=== PATIENT | female | born 1965 ===

== ENCOUNTER 2017-01-03 14:37 | Emergency (ER) | payer BC ==
--- NOTE | 2017-01-03 16:49 | UC ---
Complaint Female HPI - HPI Summary HPI Summary: 51 y/o female presents to the urgent care c/o lower abdominal pain for the past 2 days. Her pain is 6/10 associated with a mild ARAGON and body aches. Pt denies fever, N/V/D. SOB, chest pain, urinary symptoms, vaginal discharge or Hx of STDs. Pt states her last PAP was about 3 moths ago and it was normal. - History Of Current Complaint Chief Complaint: UCAbdominalPain Stated Complaint: STOMACH,ARAGON Time Seen by Provider: 01/03/17 16:34 Hx Obtained From: Patient Hx Last Menstrual Period: Pt is postmenopausal ?: No Onset/Duration: Gradual Onset, Lasting Days, Still Present Timing: Constant Severity Initially: Mild Severity Currently: Moderate Pain Intensity: 6 Pain Scale Used: 0-10 Numeric Character: Cramping Aggravating Factor(s): Movement Alleviating Factor(s): Nothing Associated Signs And Symptoms: Negative: Fever, Back Pain, Vaginal Bleeding/ Discharge, Vaginal Discharge, Nausea, Vomiting(# Of Episodes =) - Risk Factors Ectopic Risk Factor: Negative Ovarian Torsion Risk Factor: Negative - Allergies/Home Medications Allergies/Adverse Reactions: Allergies Allergy/AdvReac Type Severity Reaction Status Date / Time No Known Allergies Allergy Verified 01/03/17 14:56 PMH/Surg Hx/FS Hx/Imm Hx Previously Healthy: Yes - Surgical History Surgical History: Yes Surgery Procedure, Year, and Place: . BILATERAL SHOULDER SURGERY. [facility] - Family History Known Family History: Positive: None - Social History Occupation: Unemployed Lives: With Family Alcohol Use: Weekly Alcohol Amount: WINE WITH DINNER Substance Use Type: None Smoking Status (MU): Never Smoked Tobacco Review of Systems Constitutional: Other - body aches Skin: Negative Eyes: Negative ENT: Negative Respiratory: Negative Cardiovascular: Negative Gastrointestinal: Abdominal Pain - Pelvic pain Genitourinary: Negative Motor: Negative Neurovascular: Negative Musculoskeletal: Negative Neurological: Headache - mild Psychological: Negative All Other Systems Reviewed And Are Negative: Yes Physical Exam Triage Information Reviewed: Yes Appearance: Well-Appearing, No Pain Distress, Well-Nourished, Obese Vital Signs: Initial Vital Signs Temp 97.8 F 01/03/17 14:57 Pulse 102 01/03/17 14:57 Resp 17 01/03/17 14:57 BP 122/72 01/03/17 14:57 Pulse Ox 98 01/03/17 14:57 Vital Signs Reviewed: Yes Eye Exam: Normal Eyes: Positive: Conjunctiva Clear - PERRLA, EOMI, fundi grossly intact ENT Exam: Normal ENT: Positive: Normal ENT inspection, Hearing grossly normal, Pharynx normal, TMs normal Dental Exam: Normal Neck exam: Normal Neck: Positive: Supple, Nontender, No Lymphadenopathy Respiratory Exam: Normal Respiratory: Positive: Chest non-tender, Lungs clear, Normal breath sounds Cardiovascular Exam: Normal Cardiovascular: Positive: RRR, No Murmur, Pulses Normal Abdominal Exam: Normal Abdomen Description: Positive: Nontender - tenderness on deep palpation over the suprapubic area, No Organomegaly, Soft, Other: - Pelvic: I was assisted by Nurse Sherrie. External genitalia within normal limits. There is no lesions there is no masses noted. Speculum exam: The vaginal porras are within normal limits w / white vaginal discharge and a fishy odor, no the lesions or rashes. The cervix is closed with no lesions or masses. There is no CMT's, and no adnexal masses. Sample sentLab for affirm panel.. Negative: CVA Tenderness (R), CVA Tenderness (L) Bowel Sounds: Positive: Present Musculoskeletal Exam: Normal Musculoskeletal: Positive: Strength Intact, ROM Intact, No Edema Neurological Exam: Normal Psychological Exam: Normal Skin Exam: Normal Complaint Female Dx - Course Course Of Treatment: 51 y/o female presents to the urgent care c/o lower abdominal pain for the past 2 days. Hx obtained. PE abnormal findings: Abdomen soft w/o any guarding. Positive bowel sounds,positive tenderness on deep palpation over the suprapubic area. Pelvic: I was assisted by Nurse Sherrie. External genitalia within normal limits. There is no lesions there is no masses noted. Speculum exam: The vaginal porras are within normal limits w/ white vaginal discharge and a fishy odor, no lesions or rashes. The cervix is closed with no lesions or masses. There is no CMT's, and no adnexal masses. Sample sentLab for affirm panel. Most likely Bacterial Vaginosis. UA ordered, result: negative except 1+ of blood. Unable to perform a transvaginal ultrasound at this moment. Pt Rx Metronidazole vaginal applicator to Tx emperically BV. Pt Rx ibuprofen to alleviate pelvic pain. However strongly advised to go to the ER if pain persisted despite the Ibuprofen for furhter evaluation and treatment. Pt understood and agreed. PAP was negative and performed in 10/[address] Nima Crawley. Pt advised to f/u up with her if not improvement. Pt understood and agreed - Differential Dx/Diagnosis Differential Diagnosis/HQI/PQRI: Appendicitis, Cervicitis, Ovarian Cyst, Pelvic Inflammatory Disease, Urinary Tract Infection, Other - vaginosos Provider Diagnoses: Bacterial vaginosis, Pelvic pain - Physician Notifications Discussed Patient Care With: José Manuel Forrester - Dr Forrester agreed on pt care and treatment. Discharge - Discharge Plan Condition: Stable Disposition: HOME Prescriptions: Ibuprofen TAB* [Motrin TAB* 800 MG] 800 mg PO Q6H #30 tab metroNIDAZOLE VAGINAL 0.75%* 1 applic VAGINAL BEDTIME #5 tube Patient Education Materials: Bacterial Vaginosis (ED), Pelvic Pain in Women (ED ) Referrals: Misbah VILLARREAL,Nima Santiago [Medical Doctor] - If Needed Non Staff,Doctor [Primary Care Provider] - Additional Instructions: Please take medications as directed to alleviate symptoms. If pelvic pain persist despite taking the ibuprofen please go to the ER immediately for furhter evaluation and treatment.
[2017-01-03 17:12] VITALS: BP 115/76
== END 2017-01-03 17:22 | disposition home or self-care (01) ==
LOC: UCCORT 14:37
DX: N76.0 Acute vaginitis (principal); R10.2 Pelvic and perineal pain
CPT/HCPCS: 81003; 87480; 87510; 99202; G0463